=== PATIENT | male | born 1945 | race Caucasian/White ===

== ENCOUNTER 2024-09-15 12:30 | Outpatient (CLI) | payer MEDICARE, OTHER | END 2024-09-15 12:31 | disposition home or self-care (01) | LOC: PET 12:30 | PROVIDERS: ATTEND Urology | DX: C61 Malignant neoplasm of prostate (principal); R97.21 Rising PSA following treatment for malignant neoplasm of prostate; G95.89 Other specified diseases of spinal cord; M89.9 Disorder of bone, unspecified | CPT/HCPCS: 78815; A9552; A9595 ==